=== PATIENT | male | born 1945 | race Caucasian/White ===

== ENCOUNTER 2016-10-31 05:15 | Day surgery (SDC) | payer MEDICARE, BC ==
[~2016-10-31 05:15] MED LIST: ACCUPRIL10 M1 PO; ACCUPRIL20 M1 PO; ACCUPRIL20 MG PO; ACCUPRIL40 MG; ADULT LOW DOSE81 M1 PO; ADVICOR 500 MG1 EACH PO; ADVICOR 5001 BOTTLE; ADVICOR PO; ASPIRIN EC LOW81 MG PO; ASPIRIN ENTERI325 MG PO; ASPIRIN325 M3 PO; ASPIRIN325 MG; BACTRIM DS TAB1 EAC2 PO; BACTRIM DS1 TA1 PO; BENZONATATE100 M1 PO; CEFTAZIDIM2 GM/50 ML IV; CEFTRIAXONE1 GM IJ; CENTRUM SILVER1 EAC4 PO; CENTRUM SILVER1 TA; CENTRUM SILVER1 TAB PO; CIPRO500 M1 PO; CIPRO500 M2 PO; COATED ASPIRIN325 MG PO; DEPO-TESTO200 MG/1 M IM; DEPO-TESTOSTERONE; DEPO-TESTOSTERONE IM; DEPOTESTOSTERONE IM/SC; DULCOLAX10 MG RC; FLOMAX0.4 M1 PO; FLOMAX0.4 MG PO; GLUCOPHAGE XR500 MG; GLUCOPHAGE1000 M1 PO; GLUCOPHAGE1000 MG PO; GLUCOPHAGE500 MG PO; GLUCOPHAGE500 MG/TA2 PO; HUMALOG100 UNITS/; ISOSORBIDE MONO30 M4 PO; ISOSORBIDE MONO60 M3 PO; KEFLEX500 MG PO; LEVOFLOXACIN750 M1 PO; LIPITOR40 M1 PO; MILK OF MAGNESIA PO; MIRALAX17 G2 PO; MUPIROCIN 2% TOP; OMEPRAZOLE20 M2 PO; OMEPRAZOLE20 M3 PO; PLAVIX75 M1 PO; PLAVIX75 MG; PLAVIX75 MG PO; PRILOSEC20 M1 PO; PRILOSEC20 MG; PRILOSEC20 MG PO; PROTONIX40 M2 PO; QUINAPRIL HCL40 MG PO; SENNA S TABLET1 EACH PO; SULFAMYLON SOL250 M1 EXT; SULFAMYLON60 GM TOP; SYNTHROID150 MC1 PO; SYNTHROID25 MCG PO; SYNTHROID300 MCG; TESSALON PERLE100 M1 PO; TOPROL XL25 M1 PO; TOPROL XL50 MG; TOPROL XL50 MG PO; TRAMADOL HCL50 MG; TRAMADOL HCL50 MG PO; TYLENOL325 M2 PO; VANCOMYCIN HCL1 GM IV; VITAMIN B-121000 MC1 PO; XARELTO15 M1 PO; XARELTO20 M1 PO; ZOSYN 3.3753.375 GM IV; [UNRECOGNIZED DRUG - OTHER] PO
[2016-10-31 06:15] LABS: BASO % 0.2 % (0-2); HCT-HEMATOCRIT 47.8 % (36.0-53.5); HGB-HEMOGLOBIN 16.1 gm/dl (13.5-17.0); IMMATURE GRANULOCYTES ABSOLUTE 0.05 tho/cmm (0-0.03); IMMATURE GRANULOCYTES PERCENT 0.2 % (0-0.3); LYMPH % 67.5 % (20-45); MCHC MEAN CORPUSCULAR HGB CONC 33.7 % (32.0-36.0); MCV (MEAN CELL VOLUME) 89.2 fl (82.0-96.0); MEAN PLATELET VOLUME 10.3 cmc (9.4-12.4); MONO % 3.2 % (0-12); NEUTROPHIL ABSOLUTE COUNT 6.3 tho/cmm (1.6-8.0); NEUTROPHIL-AUTOMATED 6.3 tho/cmm (1.6-8.0); NEUTROPHILS % 27.9 % (40-80); PLATELET COUNT 171 tho/cmm (150-450); RED BLOOD COUNT 5.36 mil/cmm (4.40-5.70); RED CELL DISTRIBUTION WIDTH 15.3 % (12.4-16.4); WHITE BLOOD COUNT 22.7 tho/cmm (4.0-10.0)
[2016-10-31 06:18] LABS: BASO ABSOLUTE COUNT 0.1 tho/cmm (0.0-0.2); EOSINOPHIL ABSOLUTE COUNT 0.2 tho/cmm (0.0-0.7); LYMPH ABSOLUTE COUNT 15.4 tho/cmm (0.8-4.5); MONOCYTE ABSOLUTE COUNT 0.7 tho/cmm (0.0-1.2)
[2016-10-31 07:16] LABS: WBC MORPHOLOGY VARIANT LYMPHS
--- NOTE | 2016-10-31 21:52 | NUR ---
VIRTUAL CARE NOTE: ASSESSMENT DEFERRED. PT. SLEEPING.
[2016-11-01 05:26] LABS: HGB-HEMOGLOBIN 15.1 gm/dl (13.5-17.0); MCH (MEAN CORPUSCULAR HGB) 29.8 pg (28.0-32.0); MCHC MEAN CORPUSCULAR HGB CONC 33.6 % (32.0-36.0); MCV (MEAN CELL VOLUME) 88.9 fl (82.0-96.0); MEAN PLATELET VOLUME 10.3 cmc (9.4-12.4); NEUTROPHIL-AUTOMATED 11.4 tho/cmm (1.6-8.0); PLATELET COUNT 179 tho/cmm (150-450); RED BLOOD COUNT 5.06 mil/cmm (4.40-5.70); RED CELL DISTRIBUTION WIDTH 15.3 % (12.4-16.4)
[2016-11-01 05:34] LABS: ANION GAP 12 mmol/L (0-20); BLOOD UREA NITROGEN 21 mg/dl (6-24); CALCIUM 8.6 mg/dl (8.5-10.5); CARBON DIOXIDE-VENOUS 26 mmol/L (22-32); CHLORIDE 104 mmol/l (96-110); CREATININE 1.17 mg/dl (0.60-1.30); GLUCOSE 218 mg/dL (70-110); POTASSIUM 4.4 mmol/L (3.7-5.1); SODIUM 138 mmol/L (135-145); eGFR VALUE FOR BLACK 72 mL/Min
[2016-11-01 07:09] LABS: BAND % 1 % (0-20); BAND ABSOLUTE COUNT 0.3 tho/cmm (0-2.0)
[2016-11-01 07:10] LABS: WBC MORPHOLOGY VARIANT LYMPHS
[2016-11-01] MEDS ORDERED: LORTAB 5-325 M1 EAC1 PO (12:00)
--- NOTE | 2016-11-01 13:37 | NUR ---
[facility]N DISCHARGE NOTE-DID INSTRUCTIONS FROM THE DISMISSAL AND WILLIE DRAIN TEACHING, ALONG WITH MEDICATIONS AND FOLLOW UP APPTS. PATIENT WAS ABLE TO DO TEACHBACK SUCCESSFULLY AND HAD NO OTHER QUESTIONS OR CONCERNS AT THIS TIME.
== END 2016-11-01 13:50 ==
LOC: SHSB 05:15 → ORW 07:32 → PACU 09:02 → 5WD 10:10
PROVIDERS: Anesthesiology; Surgery
PROC: 0HBU0ZZ Excision of Left Breast, Open Approach (ICD-10-PCS; principal; 2016-10-31)
DX: D18.01 Hemangioma of skin and subcutaneous tissue (principal); D23.5 Other benign neoplasm of skin of trunk; I10 Essential (primary) hypertension; E66.01 Morbid (severe) obesity due to excess calories; Z68.42 Body mass index [BMI] 45.0-49.9, adult; E11.9 Type 2 diabetes mellitus without complications; E03.9 Hypothyroidism, unspecified; K21.9 Gastro-esophageal reflux disease without esophagitis; Z88.1 Allergy status to other antibiotic agents; Z79.899 Other long term (current) drug therapy; Z98.890 Other specified postprocedural states; Z88.8 Allergy status to other drugs, medicaments and biological substances
CPT/HCPCS: G8978-GP-CJ; G8979-GP-CJ; G8980-GP-CJ; J0690; J1815; J2250; J3010